=== PATIENT | male | born 1955 | race Caucasian/White ===

== ENCOUNTER 2020-05-04 08:56 | Emergency (ER) | payer OTHER ==
[~2020-05-04] VITALS: Ht 175.3 cm; Wt 98.9 kg
[2020-05-04] MEDS ORDERED: CARDIZEM CD180 M1 PO (09:20)
[2020-05-04] MEDS ORDERED: VISTARIL50 MG PO (10:52)
== END 2020-05-04 11:02 | disposition home or self-care (01) ==
LOC: ER 08:56
DX: I16.1 Hypertensive emergency (principal); I10 Essential (primary) hypertension; F41.1 Generalized anxiety disorder; F43.8 Other reactions to severe stress